=== PATIENT | male | born 1950 | race Caucasian/White ===

== ENCOUNTER 2019-06-21 14:19 | Day surgery (SDC) | payer MEDICARE, MEDICAID ==
[2019-06-16 10:03] LABS: BASOPHILS # (AUTO) 0.1 X10'3 (0-0.2); BASOPHILS % (AUTO) 0.7 % (0-1); EOSINOPHILS # (AUTO) 0.1 X10'3 (0-0.9); EOSINOPHILS % (AUTO) 1.1 % (0-6); LYMPHOCYTES # (AUTO) 1.9 X10'3 (1.1-4.8); LYMPHOCYTES % (AUTO) 17.4 % (21-51); MEAN CORPUSCULAR HEMOGLOBIN 30.1 PG (27.0-31.0); MEAN CORPUSCULAR HGB CONC 33.3 g/dL (33.0-36.5); MEAN CORPUSCULAR VOLUME 90.3 FL (78-98); MEAN PLATELET VOLUME 7.6 FL (7.4-10.4); MONOCYTES # (AUTO) 0.9 X10'3 (0-0.9); MONOCYTES % (AUTO) 7.7 % (2-12); NEUTROPHILS # (AUTO) 8.2 X10'3 (1.8-7.7); NEUTROPHILS % (AUTO) 73.1 % (42-75); PLATELET COUNT 289 X10'3 (140-440); RED BLOOD COUNT 5.31 X10'6 (4.70-6.10); RED CELL DISTRIBUTION WIDTH 13.8 % (11.5-14.5); WHITE BLOOD COUNT 11.2 X10'3 (4.5-11.0)
[2019-06-16 10:13] LABS: ALBUMIN 3.5 G/DL (3.4-5.0); ANION GAP 6 (8-16); BLOOD UREA NITROGEN 9 MG/DL (7-18); BUN/CREATININE RATIO 7.6 (5.4-32.0); CALCIUM 8.9 MG/DL (8.5-10.1); CHLORIDE 103 MMOL/L (99-107); CREATININE 1.19 MG/DL (0.60-1.10); GLUCOSE 103 MG/DL (70-104); POTASSIUM 4.4 MMOL/L (3.5-5.1); SODIUM 137 MMOL/L (135-145); TOTAL CARBON DIOXIDE 28.5 MMOL/L (24-32); eGFR 61 ML/MIN
[2019-06-16 10:15] LABS: PARTIAL THROMBOPLASTIN TIME 32 SECONDS (22-32)
[2019-06-21] VITALS (7 sets, daily range): BP systolic 110–144; BP diastolic 56–81
[~2019-06-21] VITALS: Ht 177.8 cm; Wt 83.6 kg
[~2019-06-21 14:19] MED LIST: ASPI-611 PO; ATOR20TA66 PO; CARV3.12 PO; CLOP75TA15 PO
[2019-06-21] MEDS ORDERED: GINS100C5 (14:59)
[2019-06-21] MEDS ORDERED: VIT-11 PO (14:59)
[2019-06-21] MEDS ORDERED: HYDR-4353 PO (14:59)
[2019-06-21] MEDS ORDERED: NITR0.4T51 SL (14:59)
[2019-06-21] MEDS ORDERED: ALB0.5UD IH (14:59)
[2019-06-21] MEDS ORDERED: ACET-2319 PO (14:59)
[2019-06-21] MEDS ORDERED: MULT-1085 PO (14:59)
[2019-06-21] MEDS ORDERED: NAPR-56 PO (14:59)
[2019-06-21] MEDS ORDERED: ASPI81TA52 PO (14:59)
[2019-06-21] MEDS ORDERED: fentaNYL/PF 50MCG/1 ML 2ML syringe ONE (16:08)
[2019-06-21] MEDS ORDERED: midazolam 2 mg/2 ml injection ONE (16:08)
[2019-06-21] MEDS ORDERED: iohexol 350MG/ML 100ml bottle IV ONE (16:09)
[2019-06-21] MEDS ORDERED: LIDOcaine 1% (10mg/ml)w/preservative injection 20ml MDV ONE (16:09)
[2019-06-21] MEDS ORDERED: LORazepam 0.5 MG tablet PO ONE (17:20)
[2019-06-21] MEDS ORDERED: diphenhydrAMINE 25mg capsule PO ONE (17:20)
[2019-06-21] MEDS ORDERED: normal saline 1000ml 1,000 ML IV SCH (17:20)
[2019-06-21] MEDS ORDERED: nitroGLYCERIN 0.4mg SUBLingual tab SL PRN (19:35)
[2019-06-21] MEDS ORDERED: OXAZEpam 15mg capsule PO PRN (19:35)
[2019-06-21] MEDS ORDERED: proCHLORperazine 10 MG/2 ml inj IV PRN (19:35)
[2019-06-21] MEDS ORDERED: ondansetron/PF 4mg/2ml inj IV PRN (19:35)
== END 2019-06-21 21:15 | disposition home or self-care (01) ==
LOC: SSTAY O 14:19
PROVIDERS: ATTEND Internal Medicine Interventional Cardiology
DX: I25.118 Atherosclerotic heart disease of native coronary artery with other forms of angina pectoris (principal); I25.2 Old myocardial infarction; J43.9 Emphysema, unspecified; I10 Essential (primary) hypertension; J62.8 Pneumoconiosis due to other dust containing silica; F17.290 Nicotine dependence, other tobacco product, uncomplicated; Z79.899 Other long term (current) drug therapy; Z79.82 Long term (current) use of aspirin; Z95.5 Presence of coronary angioplasty implant and graft; Z87.442 Personal history of urinary calculi; Z79.01 Long term (current) use of anticoagulants
CPT/HCPCS: 36415; 80048; 85025; 85610; 85730; 93005; 93458; 99152; C1769; J1644; J2001; J2250; J3010; J7030; Q0163; Q9967; A4620; A6258